=== PATIENT | male | born 1995 | race Two or more races ===

== ENCOUNTER 2022-11-18 19:39 | Emergency (ER) | payer OTHER ==
[~2022-11-18] VITALS: Ht 188 cm; Wt 113.0 kg
[2022-11-18 21:25] VITALS: BP 135/78; PULSE 77; RESP 18; TEMP 98.3; O2SAT 98
== END 2022-11-18 22:16 | disposition home or self-care (01) ==
LOC: ER 19:39
DX: M25.562 Pain in left knee (principal)
CPT/HCPCS: 73562